=== PATIENT | female | born 1985 | race Caucasian/White ===

== ENCOUNTER 2023-06-21 08:00 | Outpatient (CLI) | payer MEDICAID ==
[2023-06-21 16:39] LABS: BILIRUBIN,URINE NEGATIVE (NEGATIVE); GLUCOSE, URINE (UA) NEGATIVE (NEGATIVE); KETONES,URINE (UA) NEGATIVE (NEGATIVE); LEUKOCYTE ESTERASE, URINE NEGATIVE (NEGATIVE); NITRITE,URINE NEGATIVE (NEGATIVE); OCCULT BLOOD,URINE NEGATIVE (NEGATIVE); PROTEIN,URINE NEGATIVE (NEGATIVE); UROBILINOGEN,URINE 0.2 (NORMAL) E.U./dL (NORMAL)
[2023-06-21 16:42] LABS: CLARITY,URINE CLEAR (CLEAR)
[2023-06-21 17:18] LABS: BACTERIA,URINE None Seen /HPF (None Seen); RBC,URINE None Seen /HPF (0-5); SQUAMOUS EPITHELIAL CELL,UR NONE SEEN (<= Few); WBC,URINE 0-3 /HPF (0-5)
== END 2023-06-21 23:59 | disposition home or self-care (01) ==
LOC: LAB.WC 08:00
PROVIDERS: ATTEND Obstetrics & Gynecology
DX: Z34.90 Encounter for supervision of normal pregnancy, unspecified, unspecified trimester (principal)
CPT/HCPCS: 81001; 87086

== ENCOUNTER 2023-06-24 13:10 | Outpatient (CLI) | payer MEDICAID ==
[2023-06-24 18:51] LABS: BILIRUBIN,URINE NEGATIVE (NEGATIVE); GLUCOSE, URINE (UA) NEGATIVE (NEGATIVE); KETONES,URINE (UA) NEGATIVE (NEGATIVE); LEUKOCYTE ESTERASE, URINE NEGATIVE (NEGATIVE); NITRITE,URINE NEGATIVE (NEGATIVE); OCCULT BLOOD,URINE TRACE-INTA (NEGATIVE); PH,URINE 5.5 PH (5.0-7.5); PROTEIN,URINE NEGATIVE (NEGATIVE); UROBILINOGEN,URINE 0.2 (NORMAL) E.U./dL (NORMAL)
[2023-06-24 18:52] LABS: CLARITY,URINE CLEAR (CLEAR)
[2023-06-24 18:53] LABS: BASOPHILS % (AUTO) 0.3 %; EOSINOPHILS # (AUTO) 0.1 10^3/uL (0.0-0.7); EOSINOPHILS % (AUTO) 0.9 %; HCT - HEMATOCRIT 36.7 % (37.0-47.0); LYMPHOCYTES # (AUTO) 1.4 10^3/uL (1.5-3.5); LYMPHOCYTES % (AUTO) 22.1 %; MEAN CORPUSCULAR HEMOGLOBIN 27.9 pg (27.0-31.0); MEAN CORPUSCULAR HGB CONC 32.7 g/dL (32.0-36.0); MEAN CORPUSCULAR VOLUME 85.3 fL (81.0-99.0); MEAN PLATELET VOLUME 10.2 fL (7.9-10.8); MONOCYTES # (AUTO) 0.4 10^3/uL (0.0-1.0); MONOCYTES % (AUTO) 5.4 %; NEUTROPHILS # (AUTO) 4.6 10^3/uL (1.5-6.6); NEUTROPHILS % (AUTO) 71.1 %; PLT - PLATELET COUNT 236 10^3/uL (130-450); RED CELL DISTRIBUTION WIDTH 13.7 % (12.0-15.0); WHITE BLOOD COUNT 6.5 x10^3/uL (4.8-10.8)
[2023-06-24 19:40] LABS: RBC,URINE 0-5 /HPF (0-5); WBC,URINE 0-3 /HPF (0-5)
[2023-06-24 19:42] LABS: BACTERIA,URINE None Seen /HPF (None Seen); SQUAMOUS EPITHELIAL CELL,UR NONE SEEN (<= Few)
[2023-06-26 05:07] LABS: HBsAG SCREEN Negative (Negative)
[2023-06-26 06:08] LABS: HIV SCREEN 4TH GENERATION Non Reactive (Non Reactive)
[2023-06-26 09:09] LABS: HCV AB Non Reactive (Non Reactive)
[2023-06-26 15:09] LABS: VARICELLA-ZOSTER AB IGG 469 index (Immune >165)
[2023-06-27 02:08] LABS: RPR Non Reactive (Non Reactive)
== END 2023-06-24 13:11 | disposition home or self-care (01) ==
LOC: LAB.N 13:10
PROVIDERS: ATTEND Obstetrics & Gynecology
DX: Z34.90 Encounter for supervision of normal pregnancy, unspecified, unspecified trimester (principal)
CPT/HCPCS: 36415; 81001; 85025; 86592; 86762; 86787; 86803; 86850; 86900; 86901; 87086; 87340; 87389

== ENCOUNTER 2023-07-14 11:16 | Outpatient (CLI) | payer MEDICAID | END 2023-07-14 11:17 | disposition home or self-care (01) | LOC: LAB.N 11:16 | PROVIDERS: ATTEND Obstetrics & Gynecology | DX: Z53.9 Procedure and treatment not carried out, unspecified reason (principal) ==

== ENCOUNTER 2023-07-24 11:07 | Outpatient (CLI) | payer MEDICAID | END 2023-07-24 11:08 | disposition home or self-care (01) | LOC: LAB 11:07 | PROVIDERS: ATTEND Obstetrics & Gynecology | DX: Z53.9 Procedure and treatment not carried out, unspecified reason (principal) ==

== ENCOUNTER 2023-08-14 11:48 | Outpatient (CLI) | payer MEDICAID ==
[2023-08-14 18:05] LABS: CRP - C-REACTIVE PROTEIN 1.3 mg/dL (<0.5)
[2023-08-14 18:17] LABS: THYROID STIMULATING HORMONE 2.48 uIU/mL (0.34-5.60)
== END 2023-08-14 11:49 | disposition home or self-care (01) ==
LOC: LAB.N 11:48
PROVIDERS: ATTEND Family Medicine
DX: R07.89 Other chest pain (principal)
CPT/HCPCS: 36415; 84443; 85651; 86140

== ENCOUNTER 2023-10-03 20:57 | Outpatient (CLI) | payer MEDICAID ==
--- NOTE | 2023-10-04 13:47 | Ultrasound Report ---
PROCEDURE: OB Detailed Eval INDICATIONS: SUPERVISION OF OUTSIDE/PRIOR DATING DATA: Last menstrual period (LMP): 04/23/2023. LMP-based estimated date of delivery (ALESIA): 01/28/2024. First dating scan (date and location): 06/28/2023. Estimated date of delivery (ALESIA) from first dating scan: 02/07/2024. The below data below was generated using the sonographic ALESIA of 02/07/2024 TECHNIQUE: Real-time scanning was performed of the fetus, with image documentation and biometric measurements. Endovaginal scanning: Not performed. COMPARISON: 06/28/2023 FINDINGS: General: A single living intrauterine gestation is present. Presentation: Vertex Placenta: Placental position is anterior, without previa. Amniotic fluid index: 18.2 cm, deepest pocket is 6.4 cm, within normal limits for gestational age. heart rate: 145 beats per minute. Maternal cervical canal: Closed and 3.7 cm long; normal length is 2.5 cm or more. biometrics: Biparietal diameter: 5.1 cm, 21 weeks 4 days, 36th percentile Head circumference: 19.9 cm, 22 weeks 0 days, 47th percentile Abdominal circumference: 18.7 cm, 23 weeks 3 days, 88th percentile Femur length: 3.8 cm, 22 weeks 1 day, 48th percentile Estimated gestational age from initial scan: 21 weeks 6 days Composite gestational age from present scan: 22 weeks 0 days Estimated weight and percentile: 529 g, 86th percentile Measurement variability in biometric dating: +/- 10 days from 12-20 weeks gestation, +/- 2 weeks from 20-30 weeks gestation, +/- 3 weeks at 30 weeks gestation or later. Anatomic survey: Neuro: Ventricles are normal at less than 10 mm. Cisterna magna is normal at 3-11 mm. Cerebellum i s normal in size and morphology. Nuchal skin fold: Normal at less than 6 mm between 14 and 20 weeks gestational age. Face: Nose and lips, facial profile are normal. Spine: No evidence for spina bifida. Heart: 4-chambered heart is present, with normal ventricular outflow tracts. Diaphragm: Diaphragm is not well visualized Stomach: Left-sided stomach is present. Kidneys: No hydronephrosis. Normal is less than 5 mm in 2nd trimester, less than 7 mm in 3rd trimester. Cord: 3 vessel cord has orthotopic insertion. Bladder: Normal in size. Extremities: All 4 extremities are visualized. Maternal left ovary is not well seen. The left adnexa there is a lobulated echogenic mass measuring 3 .8 cm with hypoechoic rim and peripheral vascular flow. Differential diagnosis includes left ovarian fat-containing lesion versus bowel loop versus other. IMPRESSION: 1. Single living intrauterine with appropriate growth. 2. Estimated weight at the 86th percentile. 3. Suboptimal visualization of the diaphragm shadow, otherwise normal anatomy. Consider follow- up. 4. Anterior placenta. 5. Possible echogenic left ovarian lesion. Recommend follow-up ultrasound with transvaginal imaging p ostpartum when the patient is able to tolerate this exam. Reviewed by: Rachele Gracia MD on 10/04/2023 1:46 PM PST Approved by: Rachele Gracia MD on 10/04/2023 1:46 PM PST Station ID: [id number]
== END 2023-10-03 20:58 | disposition home or self-care (01) ==
LOC: DI 20:57
PROVIDERS: ATTEND Obstetrics & Gynecology
DX: O09.522 Supervision of elderly multigravida, second trimester (principal); Z3A.22 22 weeks gestation of pregnancy

== ENCOUNTER 2023-11-09 10:52 | Outpatient (CLI) | payer MEDICAID ==
[2023-11-09 17:35] LABS: HCT - HEMATOCRIT 36.1 % (37.0-47.0); HGB - HEMOGLOBIN 11.2 g/dL (12.0-16.0); MEAN CORPUSCULAR HEMOGLOBIN 28.3 pg (27.0-31.0); MEAN CORPUSCULAR VOLUME 91.2 fL (81.0-99.0); MEAN PLATELET VOLUME 10.1 fL (7.9-10.8); RED BLOOD COUNT 3.96 10^6/uL (4.20-5.40); RED CELL DISTRIBUTION WIDTH 13.8 % (12.0-15.0); WHITE BLOOD COUNT 6.7 x10^3/uL (4.8-10.8)
== END 2023-11-09 10:53 | disposition home or self-care (01) ==
LOC: LAB.N 10:52
PROVIDERS: ATTEND Obstetrics & Gynecology
DX: O09.522 Supervision of elderly multigravida, second trimester (principal)
CPT/HCPCS: 36415; 82950; 85027

== ENCOUNTER 2023-12-18 11:23 | Outpatient (CLI) | payer MEDICAID ==
--- NOTE | 2023-12-18 13:52 | Ultrasound Report ---
PROCEDURE: OB Follow up INDICATIONS: SUPERVISION OF OUTSIDE/PRIOR DATING DATA: Last menstrual period (LMP): 04/23/2023. LMP-based estimated date of delivery (ALESIA): 01/28/2024. First dating scan (date and location): 06/28/2023. Estimated date of delivery (ALESIA) from first dating scan: 02/07/2024. The below data below was generated using the ultrasound ALESIA of 02/07/2024 TECHNIQUE: Real-time scanning was performed of the fetus, with image documentation and biometric measurements. Endovaginal scanning: Not performed. COMPARISON: 10/03/2023 FINDINGS: General: A single living intrauterine gestation is present. Presentation: Vertex Placenta: Placental position is anterior, without previa. Amniotic fluid index: 10.7 cm, within normal limits for gestational age. heart rate: 137 beats per minute. Maternal cervical canal: 5.7 cm long; normal length is 2.5 cm or more. biometrics: Biparietal diameter: 8.0 cm, 32 weeks 1 day, 28% Head circumference: 30.3 cm, 33 weeks 4 days, 36% Abdominal circumference: 31.5 cm, 35 weeks 3 days, 98% Femur length: 6.2 cm, 31 weeks 6 days, 18% Estimated gestational age from initial scan: 32 weeks 5 days Composite gestational age from present scan: 33 weeks 2 days Estimated weight and percentile: 2324 g, 80th percentile Measurement variability in biometric dating: +/- 10 days from 12-20 weeks gestation, +/- 2 weeks from 20-30 weeks gestation, +/- 3 weeks at 30 weeks gestation or more. Other: Diaphragm is within normal limits.. IMPRESSION: Single live intrauterine consistent with 33 weeks and 2 days. Reviewed by: Julio Alcantara MD on 12/18/2023 1:51 PM PDT Approved by: Julio Alcantara MD on 12/18/2023 1:51 PM PDT Station ID: [id number]
== END 2023-12-18 11:24 | disposition home or self-care (01) ==
LOC: DI 11:23
PROVIDERS: ATTEND Obstetrics & Gynecology
DX: O09.523 Supervision of elderly multigravida, third trimester (principal); Z3A.01 Less than 8 weeks gestation of pregnancy

== ENCOUNTER 2024-01-15 08:00 | Outpatient (CLI) | payer MEDICAID | END 2024-01-15 23:59 | disposition home or self-care (01) | LOC: LAB.WC 08:00 | PROVIDERS: ATTEND Obstetrics & Gynecology | DX: Z36.85 Encounter for antenatal screening for Streptococcus B (principal) | CPT/HCPCS: 87081; 87797 ==

== ENCOUNTER 2024-02-05 17:42 | Inpatient (IN) | payer MEDICAID ==
[2024-02-05] MEDS ORDERED: miSOPROStoL 200 MCG TABLET BC PRN (17:55)
[2024-02-05] MEDS ORDERED: LACTATED RINGERS 1,000 ML IV PRN (17:55)
[2024-02-05] MEDS ORDERED: lidocaine 1% 20 ML MDV ID PRN (17:55)
[2024-02-05] MEDS ORDERED: NIFEdipine 10 MG CAPSULE PO PRN (17:55)
[2024-02-05] MEDS ORDERED: TERBUTALINE 1 MG/ML VIAL SUBQ PRN (17:55)
[2024-02-05] MEDS ORDERED: ONDANSETRON ODT 4 MG TABLET TL PRN (17:55)
[2024-02-05] MEDS ORDERED: METHYLERGONOVINE 0.2 MG/ML VIAL IM PRN (17:55)
[2024-02-05] MEDS ORDERED: fentaNYL 100 MCG/2 ML VIAL IVP PRN (17:55)
[2024-02-05] MEDS ORDERED: TRANEXAMIC ACID IN NACL 1,000 MG/100 ML BAG IV PRN (17:55)
[2024-02-05] MEDS ORDERED: hydrALAZINE INJ 20 MG/ML VIAL IVP PRN ×2 (17:55)
[2024-02-05] MEDS ORDERED: ACETAMINOPHEN 500 MG TABLET PO PRN (17:55)
[2024-02-05] MEDS ORDERED: LABETALOL 20 MG/4 ML SYRINGE IVP PRN ×3 (17:55)
[2024-02-05] MEDS ORDERED: miSOPROStoL 200 MCG TABLET PR PRN (17:55)
[2024-02-05] MEDS ORDERED: OXYTOCIN 10 UNIT/ML VIAL IM PRN (17:55)
[2024-02-05] MEDS ORDERED: SODIUM CHLORIDE FLUSH 0.9% 10 ML SYRINGE IVP PRN (17:55)
[2024-02-05] MEDS ORDERED: OXYTOCIN/SODIUM CHLORIDE 500 ML IV PRN (17:55)
[2024-02-05] MEDS ORDERED: SODIUM CHLORIDE FLUSH 0.9% 10 ML SYRINGE IVP SCH (18:00)
[2024-02-05 18:27] LABS: BASOPHILS % (AUTO) 0.3 %; EOSINOPHILS # (AUTO) 0.1 10^3/uL (0.0-0.7); EOSINOPHILS % (AUTO) 0.7 %; HCT - HEMATOCRIT 37.2 % (37.0-47.0); HGB - HEMOGLOBIN 11.9 g/dL (12.0-16.0); LYMPHOCYTES # (AUTO) 1.7 10^3/uL (1.5-3.5); LYMPHOCYTES % (AUTO) 22.3 %; MEAN CORPUSCULAR HEMOGLOBIN 28.2 pg (27.0-31.0); MEAN CORPUSCULAR VOLUME 88.2 fL (81.0-99.0); MEAN PLATELET VOLUME 9.6 fL (7.9-10.8); MONOCYTES # (AUTO) 0.6 10^3/uL (0.0-1.0); MONOCYTES % (AUTO) 7.4 %; NEUTROPHILS # (AUTO) 5.2 10^3/uL (1.5-6.6); NEUTROPHILS % (AUTO) 68.2 %; PLT - PLATELET COUNT 185 10^3/uL (130-450); RED BLOOD COUNT 4.22 10^6/uL (4.20-5.40); RED CELL DISTRIBUTION WIDTH 13.8 % (12.0-15.0); WHITE BLOOD COUNT 7.5 x10^3/uL (4.8-10.8)
[2024-02-05] MEDS: LACTATED RINGERS 1,000 ML IV SCH (18:33)
[2024-02-05] MEDS: AMPICILLIN 2 GM in SODIUM CHLORIDE 0.9% MINIBAG 100 ML IV ONE (18:33)
--- NOTE | 2024-02-05 18:57 | HISTORY & PHYSICAL EXAMINATION ---
Admit History - : 5 Parity: 3 : 1 Care: positive: [facility] Smoking Status: Never smoker - Mother's Labs Mother's Blood Type: positive: B Mother's RH: positive: Positive GBS: positive: Group B Strep Positive Rubella Status: positive: Immune - HPI Current EDU 02/07/24 Gestation 39 Weeks and 5 Days 5 Vital Signs Temperature 98.6 F 02/05/24 18:05 Heart Rate 90 02/05/24 18:05 Respiratory Rate 17 02/05/24 18:05 Blood Pressure 131/77 H 02/05/24 18:05 Temperature 98.6 F 02/05/24 18:05 Heart Rate 90 02/05/24 18:05 Respiratory Rate 17 02/05/24 18:05 Blood Pressure 131/77 H 02/05/24 18:05 O2 Saturation If not protocol: Oxygen Flow, liters/minute Meds/Allgy - Home Medications Home Medications: Ambulatory Orders Medication Instructions Recorded Confirmed No Known Home Medications 02/05/24 02/05/24 - Allergies Allergies/Adverse Reactions: Allergies Allergy/AdvReac Type Severity Reaction Status Date / Time No Known Drug Allergies Allergy Verified 02/05/24 17:55 Physical - Abdominal Exam Vital Signs: Temp Pulse Resp BP Pulse Ox O2 Flow Rate 98.6 F 90 17 131/77 H 02/05/24 18:05 02/05/24 18:05 02/05/24 18:05 02/05/24 18:05 Plan for Labor - Plan For Labor I expect patient to be DC'd or transferred within 96 hours.: Yes
[2024-02-05] MEDS: OXYTOCIN/SODIUM CHLORIDE 500 ML IV SCH (19:30)
[2024-02-05] MEDS: AMPICILLIN 1 GM in SODIUM CHLORIDE 0.9% MINIBAG 100 ML IV SCH (22:50)
[2024-02-06] MEDS ORDERED: SIMETHICONE CHEW 80 MG TABLET PO PRN (02:20)
[2024-02-06] MEDS ORDERED: ONDANSETRON 4 MG/2 ML VIAL IVP PRN (02:20)
[2024-02-06] MEDS ORDERED: CALCIUM CARBONATE CHEW 500 MG TABLET PO PRN (02:20)
--- NOTE | 2024-02-06 02:23 | DELIVERY NOTE ---
Delivery Note - Labor Labor: positive: Induced by oxytocin - Infant Delivery Method Delivery Method: positive: Spontaneous vaginal delivery - Presentation Presentation: positive: Vertex - Nuchal Cord Nuchal Cord: positive: None - Anesthetic Anesthetic: positive: Lidocaine - 1% plain Volume: positive: 2cc - Amniotic Fluid Description Amniotic Fluid Description: positive: Clear - Laceration Laceration: positive: 1st degree - Suture Suture Type: positive: Vicryl Suture Size: positive: 3-0 - Delivery Outcome Delivery Outcome: positive: Livebirth - Cataldo: positive: Placed in direct skin contact with mother sex: positive: Female - Cord Cord: positive: 3 vessels - Placenta Placenta: positive: Intact - Estimated Blood Loss Estimated Blood Loss (in cc): 250 - Post Delivery Events Post Delivery Events: positive: No post delivery events - Delivery Comments (Free Text/Narrative) Delivery Comments (Free Text/Narrative): Preoperative Diagnoses 39 weeks gestation Induction of labor Elderly multigravida GBS positive Postoperative Diagnoses Same Status post continuous vaginal delivery Delivery of live baez Patient was admitted at 39 weeks 5 days gestation for induction of labor at term. She had a history of precipitous labor and was GBS positive, she was admitted, started ampicillin, then oxytocin was started. She progressed to complete with oxytocin and felt the urge to push and call the delivery team. Delivery Summary: Patient was placed in the dorsal supine position. Upon maternal pushing the head was delivered atraumatically followed by the anterior shoulder, posterior shoulder, then the remainder of the infant's body. A female was delivered with APGARS of 9 at 1 minute and 9 at 5 minutes. The infant was placed on its mother's chest . After the cord finished pulsating, the umbilical cord was clamped times two and cut. The placenta delivered intact with three vessel cord. Placenta was not sent to pathology. Thirty units of Pitocin were added to the IV fluid and allowed to run freely. Uterine massage was performed until uterus was deemed firm. Upon inspection of the perineum, a first-degree midline laceration was noted. This was repaired with 2 [id number] stitches. Upon re-inspection the patient was hemostatic. Uterus again massaged and found to be firm. Needle and sponge counts were correct. Patient was stable and allowed to recover in L&D room. Infant was stable and remained in room with mother. weight is pending at this time.
[2024-02-06] MEDS ORDERED: LACTATED RINGERS 1,000 ML IV SCH (03:00)
[2024-02-06] MEDS: IBUPROFEN 600 MG TABLET PO SCH (04:14)
[2024-02-06] MEDS: ACETAMINOPHEN 500 MG TABLET PO SCH (04:15)
[2024-02-06] MEDS: DOCUSATE SODIUM 100 MG CAPSULE PO PRN (04:15)
--- NOTE | 2024-02-06 08:46 | PHARMACY PROGRESS NOTE ---
- Best Possible Medication History Admit Date and Time: 02/05/24 9988 Processed by: Pharmacy Medications reviewed in ED?: No Medication History completed: Yes Patient Interview: Completed Secondary Source(s): Insurance records As the person ultimately responsible for medication therapy, providers are able to order a medication from an existing home medication list in [facility] via the "Reconcile Routine" prior to Confirmation of that medication by technical support manager. Such practice is discouraged except when the physician, in their clinical judgment, deems that a medical need exists for a medication without regard to previous use.
[2024-02-07 09:53] VITALS: BP 130/78; O2SAT 96
--- NOTE | 2024-02-07 12:23 | Labor Flowsheet ---
Labor Flowsheet Datetime Report Generated by CPN: 02/07/2024 12:23 Datetime: 02/07/2024 09:28 VITAL SIGNS NBP Sys/Danae/Mean (mmHg): 130 : 78 : 89 Pulse: 75 Datetime: 02/06/2024 02:53 Membranes Ruptured Date/Time: 02/06/2024 02:03 Membranes Rupture Method: Spontaneous Amniotic Fluid Color: Clear Amniotic Fluid Amount: Large Amniotic Fluid Odor: Normal Datetime: 02/06/2024 02:04 Stage of : Datetime: 02/06/2024 02:03 ASSESSMENT A Monitor Mode: Telemetry FHR Baseline Rate : 145 Decelerations: None Category: Category I Datetime: 02/06/2024 02:02 Communication Comments: provider called to bedside, for delivery pt has urge to push Datetime: 02/06/2024 02:00 UTERINE ACTIVITY Monitor Mode: External Frequency (min): 1-2.5 Quality: Strong Duration (sec): 50-110 Pattern: Normal: <= 5 Contractions in 10 Minutes Resting Tone (Palpate): Relaxed Variability: Moderate 6-25 bpm Accelerations: 15X15 Datetime: 02/06/2024 01:46 VAGINAL EXAM Dilatation (cm): 8.0 Effacement (%): 100 Station: 1 Exam by: Dr.Nelson COMMUNICATION Communication: Provider at Bedside Datetime: 02/06/2024 01:33 MEDICATIONS Pitocin (milliunits): Decreased to @ 6 Datetime: 02/06/2024 01:27 PATIENT CARE Patient Care Comments: up to br Datetime: 02/06/2024 00:29 FHR Baseline Changes: No Baseline Change Comments: period of tracing maternal hr due to pt up to bathroom Datetime: 02/05/2024 23:52 LaborFlag: Labor Datetime: 02/05/2024 22:50 Antibiotics: Ampicillin IV 1 Gm
--- NOTE | 2024-02-07 21:03 | DISCHARGE SUMMARY ---
"Discharge Summary Admit Date: 02/05/24 Discharge Date: 02/07/24 Discharging Provider: Nicole Hernandez MD Code Status: Attempt Resuscitation Condition at Discharge: Good - DIAGNOSES Admission Diagnoses: term , admitted for labor induction Discharge Diagnoses with Status of Each Condition: vaginal delivery without complication - HPI History of Present Illness: patient with uncomplicated pregancy admitted for labor induction. - CONSULTS | PROCEDURES Procedures: vaginal delivery - HOSPITAL COURSE Hospital Course: Patient was admitted for labor induction, with misoprostol. got to complete and delivered quickly. Baby girl Violet born at 2:04 02/05, weighing 7 lbs 13 oz. 19.9 in long. post course was uncomplicated and she was discharged home on ppd #1. - ALLERGIES Allergies/Adverse Reactions: Allergies Allergy/AdvReac Type Severity Reaction Status Date / Time No Known Drug Allergies Allergy Verified 02/05/24 17:55 - MEDICATIONS Home Medications: Ambulatory Orders Medication Instructions Recorded Confirmed Docusate Sodium 100Mg Capsule 100 - 200 mg PO BID PRN #60 cap 02/07/24 [Colace 100Mg Capsule] Ibuprofen [Motrin] 600 mg PO Q6H PRN #30 tab 02/07/24 - PHYSICAL EXAM AT DISCHARGE General Appearance: positive: No acute distress, Alert Respiratory: positive: No respiratory distress Cardiovascular: positive: Regular rate & rhythm Extremities: positive: Non-tender - LABS Result Diagrams: 02/05/24 18:08 - FOLLOW UP Follow Up: in clinic 1-2 weeks - TIME SPENT Time Spent in Discharge (Minutes): 15"
== END 2024-02-07 12:21 | disposition home or self-care (01) | DRG 807 ==
LOC: WFO 17:42 → FBP 17:43 → WFO 17:54 → FBP 17:55
PROVIDERS: ADMIT Obstetrics & Gynecology; ATTEND Obstetrics & Gynecology
PROC: 3E033VJ Introduction of Other Hormone into Peripheral Vein, Percutaneous Approach (ICD-10-PCS; 2024-02-05)
PROC: 10E0XZZ Delivery of Products of Conception, External Approach (ICD-10-PCS; principal; 2024-02-06)
PROC: 0HQ9XZZ Repair Perineum Skin, External Approach (ICD-10-PCS; 2024-02-06)
DX: O70.0 First degree perineal laceration during delivery (principal); Z37.0 Single live birth; O99.824 Streptococcus B carrier state complicating childbirth; Z3A.39 39 weeks gestation of pregnancy
CPT/HCPCS: 59409; 85025; 86850; 86900; 86901; A9270; J7120